=== PATIENT | female | born 1960 | race Caucasian/White ===

== ENCOUNTER 2017-10-06 09:03 | Day surgery (SDC) | payer BC ==
--- NOTE | 2017-10-06 10:06 | C.PDOC ---
History Of Present Illness Patient presents to ED c/o epigatsric/chest discomfort since last night, states she thinks a chicken bone is stuck in her esophagus. Patient called her GI Dr. Ferrell, who plans to do endoscopy on her today. She denies nausea, diarrhea , chest pain, SOB, fever, trauma. PMhx of Factor V Leiden thrombophilia, esophageal strictures, hypothyroidism. Time Seen by Provider: 10/06/17 09:09 Chief Complaint (Nursing): ENT Problem History Per: Patient, Family ( ) History/Exam Limitations: no limitations Onset/Duration Of Symptoms: Hrs Current Symptoms Are (Timing): Still Present Severity: Mild Past Medical History Reviewed: Historical Data, Nursing Documentation, Vital Signs Vital Signs: Last Vital Signs Temp 97.8 F 10/06/17 09:04 Pulse 87 10/06/17 09:04 Resp 18 10/06/17 09:04 BP 166/117 H 10/06/17 09:04 Pulse Ox 100 10/06/17 09:04 - Medical History PMH: Hypothyroidism Other PMH: Factor V Leiden thrombophilia - Social History Hx Alcohol Use: No Hx Substance Use: No - Immunization History Hx Tetanus Toxoid Vaccination: No Hx Influenza Vaccination: No Hx Pneumococcal Vaccination: No Review Of Systems Constitutional: Negative for: Fever, Chills Cardiovascular: Negative for: Chest Pain Respiratory: Negative for: Cough, Shortness of Breath Gastrointestinal: Positive for: Abdominal Pain, Other (spitting up saliva). Negative for: Nausea, Vomiting, Diarrhea Physical Exam - Physical Exam Appears: Well, Non-toxic, No Acute Distress, Other (speaking in full sentences, occasionally spitting up saliva) Skin: Normal Color, Warm, Dry Head: Normacephalic Oral Mucosa: Moist Throat: Normal, No Erythema, No Exudate, No Drooling Cardiovascular: Rhythm Regular Respiratory: Normal Breath Sounds, No Rales, No Rhonchi, No Wheezing Gastrointestinal/Abdominal: Normal Exam, Bowel Sounds, Soft, No Tenderness Neurological/Psych: Oriented x3 ED Course And Treatment O2 Sat by Pulse Oximetry: 100 (RA) Pulse Ox Interpretation: Normal Progress Note: Blood work, CXR, neck Xray, EKG ordered. Patient refusing Xrays. Disposition - Disposition
[2017-10-06 10:30] LABS: BASO # 0.1 K/uL (0.0-0.2); BASO % 1.2 % (0.0-2.0); EOS # 0.1 K/uL (0.0-0.7); EOS % 0.9 % (0.0-4.0); HEMOGLOBIN 13.6 g/dL (11.0-16.0); LYMPH # 2.5 K/uL (1.0-4.3); LYMPH % 25.2 % (20.0-40.0); MEAN CELL VOLUME 83.9 fL (81.0-99.0); MEAN CORPUSCULAR HEMOGLOBIN 28.5 pg (27.0-31.0); MONO # 0.7 K/uL (0.0-0.8); MONO % 7.2 % (0.0-10.0); NEUT # 6.6 K/uL (1.8-7.0); NEUT % 65.5 % (50.0-75.0); NRBC % 0.1 % (0.0-2.0); RBC 4.75 Mil/uL (3.80-5.20); RED CELL DISTRIBUTION WIDTH 14.5 % (11.5-14.5); WHITE BLOOD COUNT 10.1 K/uL (4.8-10.8)
[2017-10-06 10:40] LABS: PROTHROMBIN TIME 11.1 SECONDS (9.7-12.2)
[2017-10-06 10:45] LABS: ALB/GLOB RATIO 1.4 (1.0-2.1); ALBUMIN 4.8 g/dL (3.5-5.0); ALT/SGPT 18 U/L (9-52); AST/SGOT 27 U/L (14-36); BLOOD UREA NITROGEN 13 mg/dL (7-17); CALCIUM 10.4 mg/dl (8.6-10.4); GFR AFRICAN-AMERICAN > 60; GFR NON-AFRICAN AMERICAN > 60
[2017-10-06] MEDS ORDERED: Propofol 10 mg/ml Inj (20 ML) ONE (11:50)
[2017-10-06] MEDS ORDERED: Lactated Ringer's 1,000 ML IV ONE (11:55)
[2017-10-06] MEDS ORDERED: Glucagon Recombinant 1 mg Inj ONE ×2 (12:01→12:03)
[2017-10-06] MEDS ORDERED: DiphenhydrAMINE 50 mg/ml Inj ONE (12:20)
[2017-10-06] MEDS ORDERED: Phenylephrine 10 mg/ml Inj ONE (12:22)
[2017-10-06] MEDS ORDERED: metroNIDAZOLE IV 500 mg/100 ml 500 MG/100 ML BAG IVPB STA (12:30)
[2017-10-06 12:40] VITALS: TEMP 97.5
[2017-10-06] MEDS ORDERED: Sucralfate 1 gm/10 ml Oral Susp UD PO ONE (14:00)
[2017-10-06 14:28] VITALS: PULSE 92
[2017-10-06 14:43] VITALS: BP 120/70; RESP 13; O2SAT 97
== END 2017-10-06 15:25 | disposition home or self-care (01) ==
LOC: C.ER 09:03 → C.SDS 10:42
PROVIDERS: ATTEND Specialist
DX: K22.2 Esophageal obstruction (principal); K20.8 Other esophagitis; D68.51 Activated protein C resistance; E03.9 Hypothyroidism, unspecified
CPT/HCPCS: 43247; 80053; 84443; 85025; 85610; 85730; 86850; 86900; 88300; 96374; C9113; J7120